=== PATIENT | male | born 1995 | race Caucasian/White ===

== ENCOUNTER 2018-01-16 14:05 | Emergency (ER) | payer OTHER ==
[~2018-01-16] VITALS: Ht 180.3 cm; Wt 138.6 kg
[2018-01-16 16:48] VITALS: BP 128/61
== END 2018-01-16 16:53 | disposition home or self-care (01) ==
LOC: FSED 14:05
CPT/HCPCS: 71046; 74177; 80053; 81003; 84484; 85025; 93005; 99284

== ENCOUNTER 2018-08-30 21:15 | Emergency (ER) | payer OTHER ==
[~2018-08-30] VITALS: Ht 182.9 cm; Wt 137.4 kg
[2018-08-30 23:07] VITALS: BP 160/86
== END 2018-08-30 23:00 | disposition home or self-care (01) ==
LOC: FSED 21:15
DX: J03.90 Acute tonsillitis, unspecified (principal); B34.9 Viral infection, unspecified
CPT/HCPCS: 83518; 86308; 99283